=== PATIENT | male | born 1995 | race Caucasian/White ===

== ENCOUNTER 2025-08-24 23:54 | Emergency (ER) | payer BC ==
[2025-08-25] MEDS ORDERED: Sodium Chloride 0.9% 10 ML Syringe FLUSH PRN (00:11)
[2025-08-25] MEDS: Ketorolac 30 MG/ML SDV IVPUSH ONE (00:18)
[2025-08-25] MEDS: diphenhydrAMINE 50 MG/ML SDV IVPUSH ONE (00:20)
[2025-08-25] MEDS: Ondansetron 4 MG/2 ML SDV IVPUSH ONE (00:21)
== END 2025-08-25 01:15 | disposition home or self-care (01) ==
LOC: KA.ED 23:54
DX: R51.9 Headache, unspecified (principal); R11.2 Nausea with vomiting, unspecified; K00-K95 Diseases of the digestive system; Z88.0 Allergy status to penicillin; Z79.899 Other long term (current) drug therapy; Z87.891 Personal history of nicotine dependence
CPT/HCPCS: 96361; 96374; 96375; 99283; J1200; J1885; J2405; J7030